=== PATIENT | female | born 1940 | race Caucasian/White ===

== ENCOUNTER 2016-12-02 00:42 | Inpatient (IN) ==
[2016-12-02 01:39] LABS: Bilirubin,Urine Negative (Negative); Blood,Urine Negative (Negative); Clarity,Urine Cloudy (Clear); Color,Urine Yellow (Yellow); Glucose,Urine (UA) Normal (Normal); Ketones,Urine Negative (Negative); Leukocyte Esterase,Urine Moderate (Negative); Nitrite,Urine Negative (Negative); PH,Urine 6.5 pH Units (5.0-8.0); Protein,Urine Negative (Neg-Trace); Urobilinogen,Urine Normal (Normal)
[2016-12-02 01:41] LABS: Bacteria,Urine None Seen per hpf (None-Few); Hyaline Casts,Urine None Seen per lpf (None-Few); RBC,Urine 0-3 per hpf (0-3); Squamous Epithelial Cell,Urine Many per lpf (None-Few)
[2016-12-02 02:09] LABS: Basophils % 0.3 %; Eosinophils % 0.1 %; Hematocrit 36.5 % (35.3-44.9); Hemoglobin 11.6 g/dL (11.5-15.4); Immature Granulocytes % 0.5 % (0-4); Lymphocytes # 0.8 K/mcL (0.6-4.6); Lymphocytes % 6.4 %; Mean Corpuscular HGB Conc 31.8 g/dL (31.6-35.5); Mean Corpuscular Hemoglobin 25.7 pg (28.0-33.3); Mean Corpuscular Volume 80.9 fL (83.0-100.0); Mean Platelet Volume 9.6 fL (9.4-12.4); Monocytes # 0.9 K/mcL (0.0-1.3); Monocytes % 7.2 %; Neutrophils # 10.4 K/mcL (1.6-8.9); Platelet Count 185 K/mcL (140-400); Red Blood Count 4.51 M/mcL (3.82-4.97); Red Cell Distribution Width 18.9 % (11.5-14.5); Segmented Neutrophils % 85.5 %
[2016-12-02 02:21] LABS: Alanine Aminotransferase 103 Units/L (0-55); Albumin 3.5 g/dL (3.5-5.0); Albumin/Globulin Ratio 1.1 (1.1-2.2); Alkaline Phosphatase 86 Units/L (38-126); Aspartate Amino Transferase 181 Units/L (5-34); BUN/Creatinine Ratio 23 (6-26); Bilirubin,Direct 0.7 mg/dL (0.0-0.5); Bilirubin,Indirect 0.5 mg/dL (0.0-1.2); Bilirubin,Total 1.2 mg/dL (0.2-1.2); Blood Urea Nitrogen 23 mg/dL (7-20); Calcium 9.9 mg/dL (8.6-10.8); Carbon Dioxide 21 mEq/L (19-29); Chloride 106 mEq/L (98-109); Globulin 3.1 g/dL (2.4-3.5); Glucose 164 mg/dL (70-99); Lipase 71 Units/L (8-78); Osmolality,Calculated 295 (280-300); Potassium 3.5 mEq/L (3.5-4.5); Sodium 139 mEq/L (136-145); Total Protein 6.6 g/dL (6.0-8.3); eGFR For African Americans > 60 (> 60); eGFR For Non-African Americans 53 (> 60)
[2016-12-02] MEDS ORDERED: 0.9 % Sodium Chloride 1,000 ML IVC ONE (02:33)
[2016-12-02] MEDS ORDERED: *HR* HYDROmorphone (PF) 1 MG/ML SYRINGE IV ONE (02:33)
[2016-12-02] MEDS ORDERED: Ondansetron 4 MG/2 ML VIAL IV ONE ×2 (02:33→05:34)
--- NOTE | 2016-12-02 02:33 | Emergency Department Note ---
Disposition Clinical Impression: S/P ERCP, Transaminitis Abdominal pain Qualifiers: Abdominal location: epigastric Qualified Code(s): R10.13 - Epigastric pain Leukocytosis Qualifiers: Leukocytosis type: unspecified Qualified Code(s): D72.829 - Elevated white blood cell count, unspecified Disposition: Admitted As Inpatient Condition: Fair Time of Disposition: 05:34 Abdominal Pain HPI - General Chief Complaint: ED Abdominal Pain Stated Complaint: epigastric pain Time Seen by Provider: 12/02/16 00:50 Source: patient, family Mode of arrival: ambulatory Limitations: no limitations Nursing Notes Reviewed: Yes Vital Signs Reviewed: Yes - History of Present Illness HPI Narrative: 76-year-old female history of recent ERCP 2 days ago, presents with 4 hours of epigastric pain, patient has had dry heaves but no vomiting. Afebrile, denies chest pain, denies lower abdominal pain, states pain is mostly in her epigastrium crampy radiating into her left upper abdomen. It is the pain is 10 out of 10, crampy achy. Denies weight loss chills dysuria hematuria hematochezia or melena Pt Subjective Complaint: abdominal pain Onset (ago): hour(s) Consistency: intermittent Location: LUQ, epigastric Pain Severity: severe Pain Scale: 10 Quality: cramping, stabbing, aching Radiation: LUQ Improves with: nothing Worsens with: eating, vomiting Associated symptoms: Reports: nausea. Denies: vomiting, diarrhea, fever, chills , constipation, dysuria, hematemesis Treatments prior to arrival: none - Related Data Home Medications Medication Instructions Recorded Confirmed Atorvastatin [Lipitor] 40 mg PO HS 11/30/16 12/02/16 Diltiazem CD (24hr) [Cardizem CD] 120 mg PO BID 11/30/16 12/02/16 Dronedarone [Multaq] 400 mg PO BIDWM 11/30/16 12/02/16 FLUoxetine HCl [PROzac] 20 mg PO DAILY 11/30/16 12/02/16 Ferrous Sulfate [Iron] 325 mg PO BID 11/30/16 12/02/16 Losartan Potassium [Cozaar] 50 mg PO HS 11/30/16 12/02/16 Melatonin/Pyridoxine HCl (B6) 1 tab PO HS PRN 11/30/16 12/02/16 [Melatonin 1 mg Tablet] Rivaroxaban [Xarelto] 20 mg PO DAILY 11/30/16 12/02/16 Cyanocobalamin (Vitamin B-12) 1,000 mcg PO DAILY 12/02/16 12/02/16 [Vitamin B12] Lipase/Protease/Amylase [Creon Dr 1 cap PO TID 12/02/16 12/02/16 36,000 Units Capsule] Metformin [Glucophage] 500 mg PO TID 12/02/16 12/02/16 Allergies Allergy/AdvReac Type Severity Reaction Status Date / Time lisinopril Allergy Cough Verified 11/30/16 12:06 acetaminophen [From Vicodin] AdvReac Nausea Verified 11/30/16 12:06 hydrocodone [From Vicodin] AdvReac Nausea Verified 11/30/16 12:06 All systems ED: reviewed and negative except as stated. Constitutional: Denies: fever, chills Eyes: Denies: eye pain, eye discharge Cardiovascular: Denies: chest pain, palpitations Respiratory: Denies: cough, dyspnea Gastrointestinal: Reports: as per HPI, abdominal pain, nausea. Denies: vomiting , diarrhea, hematemesis, melena Genitourinary: Denies: urgency, dysuria Musculoskeletal: Denies: back pain, neck pain Integumentary: Denies: rash, abrasion Neurological: Denies: headache, weakness Psychiatric: Denies: anxiety, depression Abdominal Pain PMH - Past Medical History Medical history: Reports: diabetes, hyperlipidemia, hypertension, osteoporosis, thyroid disease Female Surgical History: Reports: cholecystectomy, hysterectomy Psychiatric history: Reports: no psych history - Social History Smoking status: Never smoker Alcohol use: Reports: none Drug use: Reports: none Physical Exam Constitutional: Appears moderately uncomfortable. Vital signs sinus bradycardia HEENT: NCAT, sclera anicteric, PERRLA bilaterally, normal external ears bilaterally, nasal septum nondeviated, average dentition, MMM Neck: normal inspection, neck is supple, trachea midline Resp: normal chest inspection, CTA bilaterally, no resp distress CV: RRR, no m/g/r GI: Moderate to severe epigastric tenderness palpation left upper quadrant tenderness palpation, no hepatosplenomegaly, negative Quarles sign, no rebound or rigidity Back: normal inspection, no tenderness to palpation Neuro: A&O3, no gross motor or sensory deficits bilaterally Skin: No jaundice - General Limitations: no limitations General appearance: alert Course Course Narrative: 76-year-old female status post ERCP with epigastric pain, we will check a CT scan of her abdomen after basic lab work with lipase troponin EKG is unremarkable does not show any ST segment elevations or depressions. - Reevaluation(s) Reevaluation #1: Admitted to Dr Sen, ED HOld, patient stable. Time: 06:23 - Consultations Consultation #1: I spoke with he stated that the patient could be admitted for abdominal pain, was able to see patient out patient setting, her labs looked so severe that she needed an inpatient admission unless her abdominal pain was not able to be controlled. After discussing this with the patient, she states that she is unable to go home concerned that her abdominal pain will come back worsened, we will pursue inpatient admission Time: 05:34 Vital Signs Temperature 97.8 F 12/02/16 00:56 Pulse Rate 55 12/02/16 00:56 Respiratory Rate 16 12/02/16 00:56 Blood Pressure 132/61 12/02/16 00:56 O2 Sat by Pulse Oximetry 97 12/02/16 00:56 Temperature 98.8 F 12/02/16 19:02 Pulse Rate 64 12/02/16 19:02 Respiratory Rate 16 12/02/16 19:02 Blood Pressure 134/68 12/02/16 19:02 O2 Sat by Pulse Oximetry 94 12/02/16 19:02 Oxygen Delivery Oxygen Delivery Room Air Abdominal Pain - MDM Narrative Medical decision making narrative: 36-year-old female with transaminitis, leukocytosis, status post ERCP procedure , admitted for intractable pain nausea vomiting, and further evaluation, consultation Dr. Schroeder placed Dr. Sen accepted patient for admission - Differential Diagnosis Differential Diagnosis: Likely: abdominal pain non-specific, constipation, colonic obstruction, pancreatitis, small bowel obstruction - Medical Records Medical records reviewed: Yes I reviewed the patient's medical records. - Lab Data Lab results reviewed: Yes I reviewed the patient's lab results. Result diagrams: 12/02/16 02:00 12/02/16 02:00 Lab Results 12/02/16 12/02/16 12/02/16 Range/Units 01:27 02:00 02:00 WBC 12.2 H (4.3-11.1) K/mcL RBC 4.51 (3.82-4.97) M/mcL Hgb 11.6 (11.5-15.4) g/dL Hct 36.5 (35.3-44.9) % MCV 80.9 L (83.0-100.0) fL MCH 25.7 L (28.0-33.3) pg MCHC 31.8 (31.6-35.5) g/dL RDW 18.9 H (11.5-14.5) % Plt Count 185 (140-400) K/mcL MPV 9.6 (9.4-12.4) fL Immature Gran % 0.5 (0-4) % Seg Neutrophils % 85.5 % Lymphocytes % 6.4 % Monocytes % 7.2 % Eosinophils % 0.1 % Basophils % 0.3 % Neutrophils # 10.4 H (1.6-8.9) K/mcL Lymphocytes # 0.8 (0.6-4.6) K/mcL Monocytes # 0.9 (0.0-1.3) K/mcL Eosinophils # 0.0 (0.0-0.6) K/mcL Basophils # 0.0 (0.0-0.2) K/mcL Sodium 139 (136-145) mEq/L Potassium 3.5 (3.5-4.5) mEq/L Chloride 106 (98-109) mEq/L Carbon Dioxide 21 (19-29) mEq/L BUN 23 H (7-20) mg/dL Creatinine 1.01 (0.57-1.11) mg/dL Est GFR ( Amer) > 60 (> 60) Est GFR (Non-Af Amer) 53 L (> 60) BUN/Creatinine Ratio 23 (6-26) Glucose 164 H (70-99) mg/dL Est Mean Plasma Glucose mg/dl Hemoglobin A1c ( - 5.6) % Calculated Osmolality 295 (280-300) Calcium 9.9 (8.6-10.8) mg/dL Total Bilirubin 1.2 (0.2-1.2) mg/dL Direct Bilirubin 0.7 H (0.0-0.5) mg/dL Indirect Bilirubin 0.5 (0.0-1.2) mg/dL AST 181 H (5-34) Units/L ALT 103 H (0-55) Units/L Alkaline Phosphatase 86 (38-126) Units/L Troponin I (0-0.03) ng/mL Serum Total Protein 6.6 (6.0-8.3) g/dL Albumin 3.5 (3.5-5.0) g/dL Globulin 3.1 (2.4-3.5) g/dL Albumin/Globulin Ratio 1.1 (1.1-2.2) Lipase 71 (8-78) Units/L Urine Color Yellow (Yellow) Urine Clarity Cloudy A (Clear) Urine pH 6.5 (5.0-8.0) pH Units Ur Specific [place] 1.020 (1.010-1.025) Urine Protein Negative (Neg-Trace) mg/dL Urine Glucose (UA) Normal (Normal) mg/dL Urine Ketones Negative (Negative) mg/dL Urine Blood Negative (Negative) Urine Nitrite Negative (Negative) Urine Bilirubin Negative (Negative) Urine Urobilinogen Normal (Normal) mg/dL Ur Leukocyte Esterase Moderate H (Negative) Urine Microscopic RBC 0-3 (0-3) per hpf Urine Microscopic WBC 5-15 H (0-3) per hpf Ur Squamous Epith Cells Many H (None-Few) per lpf Urine Bacteria None Seen (None-Few) per hpf Hyaline Casts None Seen (None-Few) per lpf Ur Culture Indicated? YES A (NO) 12/02/16 12/02/16 Range/Units 02:00 02:00 WBC (4.3-11.1) K/mcL RBC (3.82-4.97) M/mcL Hgb (11.5-15.4) g/dL Hct (35.3-44.9) % MCV (83.0-100.0) fL MCH (28.0-33.3) pg MCHC (31.6-35.5) g/dL RDW (11.5-14.5) % Plt Count (140-400) K/mcL MPV (9.4-12.4) fL Immature Gran % (0-4) % Seg Neutrophils % % Lymphocytes % % Monocytes % % Eosinophils % % Basophils % % Neutrophils # (1.6-8.9) K/mcL Lymphocytes # (0.6-4.6) K/mcL Monocytes # (0.0-1.3) K/mcL Eosinophils # (0.0-0.6) K/mcL Basophils # (0.0-0.2) K/mcL Sodium (136-145) mEq/L Potassium (3.5-4.5) mEq/L Chloride (98-109) mEq/L Carbon Dioxide (19-29) mEq/L BUN (7-20) mg/dL Creatinine (0.57-1.11) mg/dL Est GFR ( Amer) (> 60) Est GFR (Non-Af Amer) (> 60) BUN/Creatinine Ratio (6-26) Glucose (70-99) mg/dL Est Mean Plasma Glucose 114 mg/dl Hemoglobin A1c 5.6 ( - 5.6) % Calculated Osmolality (280-300) Calcium (8.6-10.8) mg/dL Total Bilirubin (0.2-1.2) mg/dL Direct Bilirubin (0.0-0.5) mg/dL Indirect Bilirubin (0.0-1.2) mg/dL AST (5-34) Units/L ALT (0-55) Units/L Alkaline Phosphatase (38-126) Units/L Troponin I 0.03 (0-0.03) ng/mL Serum Total Protein (6.0-8.3) g/dL Albumin (3.5-5.0) g/dL Globulin (2.4-3.5) g/dL Albumin/Globulin Ratio (1.1-2.2) Lipase (8-78) Units/L Urine Color (Yellow) Urine Clarity (Clear) Urine pH (5.0-8.0) pH Units Ur Specific [place] (1.010-1.025) Urine Protein (Neg-Trace) mg/dL Urine Glucose (UA) (Normal) mg/dL Urine Ketones (Negative) mg/dL Urine Blood (Negative) Urine Nitrite (Negative) Urine Bilirubin (Negative) Urine Urobilinogen (Normal) mg/dL Ur Leukocyte Esterase (Negative) Urine Microscopic RBC (0-3) per hpf Urine Microscopic WBC (0-3) per hpf Ur Squamous Epith Cells (None-Few) per lpf Urine Bacteria (None-Few) per hpf Hyaline Casts (None-Few) per lpf Ur Culture Indicated? (NO) - Radiology Data Radiology results reviewed: Yes I reviewed the patient's radiology results. Chest X-Ray 12/02/16 00:59 IMPRESSION: No acute cardiopulmonary abnormality. D/ / Kevon Fulton MD / Kevon Fulton MD Interpreting Provider: Kevon Fulton MD Abdomen/Pelvis CT 12/02/16 02:34 IMPRESSION: Pancreatic duct stent in place, with decompression of the pancreatic duct near the ampulla. Chronic intrahepatic and extrahepatic biliary dilation is decreased from prior CT exam. Scattered pneumobilia is likely related to recent instrumentation. There may be superimposed mild nonspecific periportal edema. Mild diverticulosis. D/ / Solomon Lanier MD / Solomon Lanier MD Interpreting Provider: Solomon Lanier MD - EKG Data EKG attestation: Yes I reviewed and interpreted this EKG. EKG shows normal: sinus rhythm Rate: bradycardia (55 bpm SC 185 [place] [address] segment elevations or depressions, nonspecific T-wave flattening in V5 and V6) T wave inversions noted in: v5, v6 Interpretation: nonspecific ST-T wave changes - Core Measures AMI Core Measures Followed: No Measure Exclusions: not indicated Attestation Statement - Attestation Attestation: I personally interviewed and examined this patient and my medical decision- making was reviewed with the ED Resident Physician, Dr. Vasques. I agree with the documented findings, disposition and treatment plan as described except to the extent set forth below. Pt with recent ERCP 2 d ago here with 4 hr hx of epigastric pain. VSS. Pt had CT scan and labs for further eval. CT shows patent duct and no abnormalities, labs with mild lekocytosis and transaminitis. D/W Dr. Andrade who agreed to consult on pt, and pt admitted to medicine.
[2016-12-02] MEDS ORDERED: *HR* HYDROmorphone (PF) 1 MG/ML SYRINGE IV STA (05:34)
[2016-12-02] MEDS: 0.9 % Sodium Chloride 1,000 ML IVC SCH ×2 (05:51→16:25)
[2016-12-02] MEDS ORDERED: Naloxone 0.4 MG/ML INJ IVP PRN (11:56)
[2016-12-02] MEDS ORDERED: *HR* HYDROmorphone (PF) 1 MG/ML SYRINGE IVP PRN (11:56)
[2016-12-02] MEDS ORDERED: Ondansetron 4 MG/2 ML VIAL IVP PRN (11:56)
[2016-12-02] MEDS ORDERED: *HR* Dextrose 50 % in Water (Syg) 50 ML SYRINGE IVP PRN (12:05)
[2016-12-02] MEDS ORDERED: Dextrose Gel 15 GM PO PRN ×2 (12:05)
[2016-12-02] MEDS ORDERED: D5% in Water 1,000 ML IVC PRN (12:05)
--- NOTE | 2016-12-02 12:05 | Electrocardiograph Report ---
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
--- NOTE | 2016-12-02 12:11 | Internal Med History&Physical ---
<Stephanie Felix M - Last Filed: 12/02/16 12:48> Date of Encounter: 12/02/16 Time of Encounter: 12:05 Assessment and Plan (1) Abdominal pain Current visit: Yes Status: Acute Patient with severe epigastric pain starting last evening and worsening, accompanied by nausea and vomiting. Patient with recent ERCP on Wednesday. Labs reveal mildly elevated WBC 12.2, elevated LFTs with AST 181, ALT 103, and alk phos normal at 86. Abd/pelvis CT shows pancreatic duct stent in place with decompression of pancreatic duct near ampulla, chronic intrahepaic and extrahepatic biliary dilation is decreased from prior CT exam. Scattered pneumobilia is likely related to recent instrumentation. Dilaudid IVP PRN for pain Zofran IVP PRN for nausea Narcan PRN for respiratory depression Dr. Schroeder consulted NPO except for meds, ice chips and sips of water IV fluids 0.9NS at 125mL/hr repeat LFTs tomorrow morning Qualifiers: Abdominal location: epigastric Qualified Code(s): R10.13 - Epigastric pain (2) S/P ERCP Current visit: Yes Status: Acute Patient had ERCP on 12/[address] Schroeder for dilated pancreatic duct. CT abdomen and pelvis today show pancreatic duct stent in place with decompression of pancreatic duct near ampulla. GI/Dr. Schroeder consulted. (3) Type 2 diabetes mellitus Current visit: Yes Status: Acute Patient was previously on Metformin, but it was stopped a few weeks ago due to concerns it was causing her diarrhea. Check Hgb A1c. Check blood sugars Q6Hr while NPO Sliding scale correction dose Q6 hours hypoglycemic protocol. Qualifiers: Diabetes mellitus complication status: without complication Diabetes mellitus care home insulin use: without care home use Qualified Code(s): E11.9 - Type 2 diabetes mellitus without complications (4) Atrial fibrillation Current visit: No Status: Chronic Patient is status post ablation and takes Cardizem and dronedarone for rhythm control and Xarelto for anti-coagulation. Patient has regular rate and rhythm on exam. Continue home doses of cardizem, dronedarone and xarelto. Qualifiers: Atrial fibrillation type: chronic Qualified Code(s): I48.2 - Chronic atrial fibrillation (5) DVT prophylaxis Current visit: Yes Status: Acute Encourage ambulation anti-embolic stockings Patient on Xarelto, additional pharmacologic prophylaxis is not indicated. Internal Medicine - H&P: HPI Chief complaint: abdominal pain Admitted From: Emergency Dept Plans for Post Hospital Care: Home History of present illness: Ms. Knight is a 76 year old female with hypertension, hyperlipidemia, diet- controlled type 2 diabetes, atrial fibrillation status post ablation, and dilation of pancreatic ducts recently had an ERCP presented to the emergency department early this morning with complaints of severe abdominal pain. Patient reports the pain is located in the epigastric area and radiates to the right and left upper quadrant in her back. She describes it as cramping, tight , severe, and worsening since its onset at about 8:00 last evening. She reports she tried Tylenol but that did not relieve her pain. She also had nausea and vomiting. Pain was somewhat relieved by pain medication given in the emergency department. Patient denies headache, lightheadedness, chest pain , palpitations, shortness of breath, diarrhea, fever, chills, night sweats. Patient reports she has been having a poor appetite and diarrhea as well as intermittent abdominal pain since early September, which is why she has been seen by Dr. Hathaway and been evaluated with an EUS, and CT. It was found that she had dilated pancreatic duct for which she underwent an ERCP with stent placement 2 days ago on the fourth. She continues to have a poor appetite. She reports she has not had a bowel movement since her ERCP on the fourth. She is passing flatus, however. Evaluation in the emergency department included a CT of the abdomen and pelvis which showed pancreatic duct stent in place with decompression of the pancreatic duct near the ampulla. Labs revealed mildly elevated white blood cell count of 12.2. Mildly elevated BUN of 23. Elevated LFTs with AST of 181, ALT of 103. Dr. Schroeder was consulted and recommended admission. On exam, patient is alert and oriented, in no acute distress. Lungs are clear to auscultation bilaterally and heart has regular rate and rhythm. Abdomen is mildly tender in the epigastric area in the right upper quadrant. Past Med Surg Social Fam HX - Past Medical History Medical history: atrial fibrillation, cancer (SCC), diabetes, hyperlipidemia, hypertension, osteoporosis Psychiatric history: no psych history - Past Surgical History Surgical History: cancer surgery (removal of SCC from ankle), cholecystectomy, hysterectomy, other (cardiac ablation) - Social History Smoking Status: Never smoker Smokeless Tobacco Status: No Alcohol use: occasionally Drug use: none - Family History Mother Living Status: Cause of : leukemia Father Living Status: Cause of : [facility] Internal Medicine - H&P: Meds Atorvastatin [Lipitor] 40 mg PO HS 11/30/16 [History] Diltiazem CD (24hr) [Cardizem CD] 120 mg PO BID 11/30/16 [History] Dronedarone [Multaq] 400 mg PO BIDWM 11/30/16 [History] FLUoxetine HCl [PROzac] 20 mg PO DAILY 11/30/16 [History] Ferrous Sulfate [Iron] 325 mg PO BID 11/30/16 [History] Losartan Potassium [Cozaar] 50 mg PO HS 11/30/16 [History] Melatonin/Pyridoxine HCl (B6) [Melatonin 1 mg Tablet] 1 tab PO HS PRN 11/30/16 [ History] Rivaroxaban [Xarelto] 20 mg PO DAILY 11/30/16 [History] Cyanocobalamin (Vitamin B-12) [Vitamin B12] 1,000 mcg PO DAILY 12/02/16 [History ] Lipase/Protease/Amylase [Creon Dr 36,000 Units Capsule] 1 cap PO TID 12/02/16 [ History] Metformin [Glucophage] 500 mg PO TID 12/02/16 [History] Allergies lisinopril Allergy (Verified 11/30/16 12:06) Cough acetaminophen [From Vicodin] Adverse Reaction (Verified 11/30/16 12:06) Nausea hydrocodone [From Vicodin] Adverse Reaction (Verified 11/30/16 12:06) Nausea All Systems PM: A 10-system review of systems was performed and is negative for pertinent findings except as documented above in the HPI. - Constitutional Constitutional: no chills, no fever(s), no night sweats - EENT Eyes: no change in vision, no discharge, no pain, no photophobia Ears: no ear discharge, no ear pain, no tinnitus Nose, mouth and throat: no dysphagia, no nasal discharge, no neck pain, no sore throat - Cardiovascular Cardiovascular ROS IM: no chest pain, no diaphoresis, no dyspnea, no lightheadedness, no palpitations, no syncope - Respiratory Respiratory: no cough, no dyspnea, no wheezing, no excessive phlegm production - Gastrointestinal Gastrointestinal: abdominal pain, nausea, vomiting, no diarrhea, no hematemesis , no hematochezia, no melena - Genitourinary Genitourinary: no change in urinary stream, no dysuria, no flank pain, no hematuria - Musculoskeletal Musculoskeletal ROS IM: no numbness, no tingling - Integumentary Integumentary IM: no rash, no unusual bruising - Neurological Neurological ROS: no confusion, no convulsions, no focal weakness, no numbness, no tingling, no tremor(s) - Hematologic/Lymphatic Hematologic/Lymphatic: no easy bruising - Constitutional Vitals: Temp Pulse Resp BP Pulse Ox 97.8 F 62 18 135/70 91 12/02/16 07:48 12/02/16 07:48 12/02/16 07:48 12/02/16 07:48 12/02/16 07:48 General appearance: Present: A&O X 3, pleasant, no acute distress - Head Head exam: Present: atraumatic, normocephalic - Eye Eye exam: Present: PERRL, conjuntiva pink, sclera anicteric Pupils: Present: PERRL - Neck Neck exam general surgery: Present: supple, trachea midline. Absent: lymphadenopathy - Respiratory Respiratory exam: Present: CTAB. Absent: accessory muscle use, rales, rhonchi, wheezes - Cardiovascular Cardiovascular exam: Present: RRR, +S1, +S2. Absent: diastolic murmur, gallop, rubs, systolic murmur - GI/Abdominal GI/Abdominal exam: Present: normal bowel sounds, soft, tenderness (mild tenderness to epigastric area and RUQ), no peritoneal signs. Absent: distended - Extremities Exam Extremities exam: Present: warm, radial pulses palpable and symetrical. Absent : calf tenderness, cyanotic, pedal edema - Neurological Exam Neurological exam: Present: CN II-XII intact, oriented X3, no focal deficits. Absent: facial droop, speech deficit - Skin Skin exam: Present: dry, intact Internal Med - H&P Results - Labs CBC & Chem 7: 12/02/16 02:00 12/02/16 02:00 Labs: All Lab Results (24 Hours) 12/02/16 12/02/16 12/02/16 Range/Units 01:27 02:00 02:00 WBC 12.2 H (4.3-11.1) K/mcL RBC 4.51 (3.82-4.97) M/mcL Hgb 11.6 (11.5-15.4) g/dL Hct 36.5 (35.3-44.9) % MCV 80.9 L (83.0-100.0) fL MCH 25.7 L (28.0-33.3) pg MCHC 31.8 (31.6-35.5) g/dL RDW 18.9 H (11.5-14.5) % Plt Count 185 (140-400) K/mcL MPV 9.6 (9.4-12.4) fL Immature Gran % 0.5 (0-4) % Seg Neutrophils % 85.5 % Lymphocytes % 6.4 % Monocytes % 7.2 % Eosinophils % 0.1 % Basophils % 0.3 % Neutrophils # 10.4 H (1.6-8.9) K/mcL Lymphocytes # 0.8 (0.6-4.6) K/mcL Monocytes # 0.9 (0.0-1.3) K/mcL Eosinophils # 0.0 (0.0-0.6) K/mcL Basophils # 0.0 (0.0-0.2) K/mcL Sodium 139 (136-145) mEq/L Potassium 3.5 (3.5-4.5) mEq/L Chloride 106 (98-109) mEq/L Carbon Dioxide 21 (19-29) mEq/L BUN 23 H (7-20) mg/dL Creatinine 1.01 (0.57-1.11) mg/dL Est GFR ( Amer) > 60 (> 60) Est GFR (Non-Af Amer) 53 L (> 60) BUN/Creatinine Ratio 23 (6-26) Glucose 164 H (70-99) mg/dL Calculated Osmolality 295 (280-300) Calcium 9.9 (8.6-10.8) mg/dL Total Bilirubin 1.2 (0.2-1.2) mg/dL Direct Bilirubin 0.7 H (0.0-0.5) mg/dL Indirect Bilirubin 0.5 (0.0-1.2) mg/dL AST 181 H (5-34) Units/L ALT 103 H (0-55) Units/L Alkaline Phosphatase 86 (38-126) Units/L Troponin I (0-0.03) ng/mL Serum Total Protein 6.6 (6.0-8.3) g/dL Albumin 3.5 (3.5-5.0) g/dL Globulin 3.1 (2.4-3.5) g/dL Albumin/Globulin Ratio 1.1 (1.1-2.2) Lipase 71 (8-78) Units/L Urine Color Yellow (Yellow) Urine Clarity Cloudy A (Clear) Urine pH 6.5 (5.0-8.0) pH Units Ur Specific [place] 1.020 (1.010-1.025) Urine Protein Negative (Neg-Trace) mg/dL Urine Glucose (UA) Normal (Normal) mg/dL Urine Ketones Negative (Negative) mg/dL Urine Blood Negative (Negative) Urine Nitrite Negative (Negative) Urine Bilirubin Negative (Negative) Urine Urobilinogen Normal (Normal) mg/dL Ur Leukocyte Esterase Moderate H (Negative) Urine Microscopic RBC 0-3 (0-3) per hpf Urine Microscopic WBC 5-15 H (0-3) per hpf Ur Squamous Epith Cells Many H (None-Few) per lpf Urine Bacteria None Seen (None-Few) per hpf Hyaline Casts None Seen (None-Few) per lpf Ur Culture Indicated? YES A (NO) 12/02/16 Range/Units 02:00 WBC (4.3-11.1) K/mcL RBC (3.82-4.97) M/mcL Hgb (11.5-15.4) g/dL Hct (35.3-44.9) % MCV (83.0-100.0) fL MCH (28.0-33.3) pg MCHC (31.6-35.5) g/dL RDW (11.5-14.5) % Plt Count (140-400) K/mcL MPV (9.4-12.4) fL Immature Gran % (0-4) % Seg Neutrophils % % Lymphocytes % % Monocytes % % Eosinophils % % Basophils % % Neutrophils # (1.6-8.9) K/mcL Lymphocytes # (0.6-4.6) K/mcL Monocytes # (0.0-1.3) K/mcL Eosinophils # (0.0-0.6) K/mcL Basophils # (0.0-0.2) K/mcL Sodium (136-145) mEq/L Potassium (3.5-4.5) mEq/L Chloride (98-109) mEq/L Carbon Dioxide (19-29) mEq/L BUN (7-20) mg/dL Creatinine (0.57-1.11) mg/dL Est GFR ( Amer) (> 60) Est GFR (Non-Af Amer) (> 60) BUN/Creatinine Ratio (6-26) Glucose (70-99) mg/dL Calculated Osmolality (280-300) Calcium (8.6-10.8) mg/dL Total Bilirubin (0.2-1.2) mg/dL Direct Bilirubin (0.0-0.5) mg/dL Indirect Bilirubin (0.0-1.2) mg/dL AST (5-34) Units/L ALT (0-55) Units/L Alkaline Phosphatase (38-126) Units/L Troponin I 0.03 (0-0.03) ng/mL Serum Total Protein (6.0-8.3) g/dL Albumin (3.5-5.0) g/dL Globulin (2.4-3.5) g/dL Albumin/Globulin Ratio (1.1-2.2) Lipase (8-78) Units/L Urine Color (Yellow) Urine Clarity (Clear) Urine pH (5.0-8.0) pH Units Ur Specific [place] (1.010-1.025) Urine Protein (Neg-Trace) mg/dL Urine Glucose (UA) (Normal) mg/dL Urine Ketones (Negative) mg/dL Urine Blood (Negative) Urine Nitrite (Negative) Urine Bilirubin (Negative) Urine Urobilinogen (Normal) mg/dL Ur Leukocyte Esterase (Negative) Urine Microscopic RBC (0-3) per hpf Urine Microscopic WBC (0-3) per hpf Ur Squamous Epith Cells (None-Few) per lpf Urine Bacteria (None-Few) per hpf Hyaline Casts (None-Few) per lpf Ur Culture Indicated? (NO) - Diagnostic Studies CT scan - abdomen Additional comments: Abdomen/Pelvis CT 12/02/16 02:34 IMPRESSION: Pancreatic duct stent in place, with decompression of the pancreatic duct near the ampulla. Chronic intrahepatic and extrahepatic biliary dilation is decreased from prior CT exam. Scattered pneumobilia is likely related to recent instrumentation. There may be superimposed mild nonspecific periportal edema. Mild diverticulosis. D/ / 12/02/2016 07:32:41 Solomon Lanier MD / mai Interpreting Provider: Solomon Lanier MD Chest x-ray Additional comments: Chest X-Ray 12/02/16 00:59 IMPRESSION: No acute cardiopulmonary abnormality. D/ / Kevon Fulton MD / Kevon Fulton MD Interpreting Provider: Kevon Fulton MD <RegRonald T - Last Filed: 12/02/16 13:41> Date of Encounter: 12/02/16 Internal Medicine - H&P: HPI History of present illness: Ms. Knight is a 76 year old female All Systems PM: A 10-system review of systems was performed and is negative for pertinent findings except as documented above in the HPI. - Constitutional Vitals: Temp Pulse Resp BP Pulse Ox 97.3 F L 60 17 138/65 92 12/02/16 12:05 12/02/16 12:05 12/02/16 12:05 12/02/16 12:05 12/02/16 12:05 Internal Med - H&P Results - Labs CBC & Chem 7: 12/02/16 02:00 12/02/16 02:00 - Attending Attestation I have independently interviewed and examined this patient. I have discussed this patient with EFREN Dykes, and her documentation reflects the plan of care with the following addendum 76 Y/O F with epigastric pain s/p pancreatic duct stent, transaminitis, possibly side effect of procedure. Physical exam VSS, abdomen is soft, not tender, chest is clear. Labs and Imaging reviewed: Mild transaminitis, otherwise unremarkable. Abd CT showed stent in place and resolution of prior dilatation Plan is to continue supportive care, GI has been consulted, follow recs, clear liquid diet as tolerated, resume home meds, other chronic conditions including Afib is stable, rest of details as in EFREN Andino documentation
[2016-12-02] MEDS ORDERED: *HR* Rivaroxaban 10 MG TABLET PO SCH (12:15)
--- NOTE | 2016-12-02 12:22 | Gastroenterology Consult Note ---
<Nolberto Herman - Last Filed: 12/02/16 12:18> Date of Encounter: 12/02/16 Time of Encounter: 10:30 - Time Spent With Patient Total time spent is greater than 50% in coordination of care (as documented) at patient's floor/unit and/or counseling patient: GI History of Present Illness - Data of Consult Patient: known to practice within the last 3 years Consult date: 12/02/16 Requesting Physician: Marcelo Ling MD - Consult Narrative Reason for consult: epigastric pain History of present illness: Ms. Knight is a 76 year old female with PMHx of HLD, HTN, DM, diverticulosis, Afib who was seen in office for epigastric pain, nausea, vomiting, and elevated LFTs. CT A/P 11/13/2016 with dilated CBD and PD. CA 19-9 elevated to 45. AST 176 and ALT 149 on 10/12, AT 55 and ALT 70 on 11/11, and today AST 181 and ALT 103. Pt had EUS and ERCP completed on 11/30, no lesions seen, nothing found in biliary tree, and temproary stent placed in PD. Pt presented to ED with recurrent epigastric pain Procedures: EUS 11/30/2016 severe dilation of the CBD and PD but no periampullary lesion seen or any lesion in the head of the pancreas. ERCP 11/30/2016 at 1:29 PM biliary sphincterotomy performed, biliary tree swept nothing found. One temporary stent placed into the ventral pancreatic duct. Plan for removal of PD stent in 3 weeks. NSAIDs: None Anticoagulation: Xarelto A/P Dilation of the pancreatic duct EUS and ERCP completed 11/30. Biliary Sphincterotomy was performed and nothing found in the biliary tree. Temporary stent was placed in the pancreatic duct. Plan to refer to [facility] for repeat EUS with spyglass and removal of PD stent in 3- 5 weeks. Concern for small stone. Start clear liquid diet. Epigastric pain As above. Continue pain control and antiemetics. Elevated LFTs Continue to monitor LFTs daily. Past Med Surg Social Fam HX - Past Medical History Medical history: atrial fibrillation, cancer (SCC), diabetes, hyperlipidemia, hypertension, osteoporosis Psychiatric history: no psych history - Past Surgical History Surgical History: cancer surgery (removal of SCC from ankle), cholecystectomy, hysterectomy, other (cardiac ablation) - Social History Smoking Status: Never smoker Smokeless Tobacco Status: No Alcohol use: occasionally Drug use: none - Family History Mother Living Status: Cause of : leukemia Father Living Status: Cause of : [facility] - Gastrointestinal Gastrointestinal: Present: as per HPI - Constitutional Constitutional: as per HPI - EENT Eyes: as per HPI Ears: Present: as per HPI Nose, mouth and throat: Present: as per HPI - Cardiovascular Cardiovascular ROS: Present: as per HPI - Respiratory Respiratory IM: Present: as per HPI - Genitourinary Genitourinary: Absent: change in color, Urinary frequency - Neurological ROS Neurological GI: Present: as per HPI - Hematologic/Lymphatic Hematologic/Lymphatic pediatric: Present: as per HPI - Musculoskeletal Musculoskeletal ROS GI: Present: as per HPI - Integumentary Integumentary GI: Present: as per HPI - Psychiatric ROS Psychiatric GI: Present: as per HPI - Endocrine Endocrine IM: Present: as per HPI - Constitutional Vitals: Temp Pulse Resp BP Pulse Ox 97.8 F 62 18 135/70 91 12/02/16 07:48 12/02/16 07:48 12/02/16 07:48 12/02/16 07:48 12/02/16 07:48 General appearance: Present: cooperative, A&O X 3, no acute distress, answers questions appropriately - Head Head exam: Present: atraumatic, normocephalic - Eye Eye exam: Present: normal appearance, sclera anicteric - ENT ENT exam: Present: mucous membranes dry - Neck Neck exam general surgery: Present: normal inspection, trachea midline - Respiratory Respiratory exam: Present: CTAB - Cardiovascular Cardiovascular exam: Present: RRR, +S1, +S2 - GI/Abdominal GI/Abdominal exam: Present: soft, tenderness (epigastric), no peritoneal signs. Absent: distended, firm, guarding - Rectal Rectal exam: Present: deferred - Extremities Exam Extremities exam: Present: warm - Neurological Exam Neurological exam: Present: no focal deficits - Psychiatric Psychiatric exam: Present: normal affect, normal mood - Skin Skin exam: Present: dry, intact, normal color, warm Results - Labs CBC & Chem 7: 12/02/16 02:00 12/02/16 02:00 Labs: Last Result Calcium 9.9 mg/dL (8.6-10.8) 12/02/16 02:00 Troponin I 0.03 ng/mL (0-0.03) 12/02/16 02:00 Entire Visit Hgb 11.6 g/dL (11.5-15.4) 12/02/16 02:00 Hct 36.5 % (35.3-44.9) 12/02/16 02:00 Total Bilirubin 1.2 mg/dL (0.2-1.2) 12/02/16 02:00 AST 181 Units/L (5-34) H 12/02/16 02:00 ALT 103 Units/L (0-55) H 12/02/16 02:00 Lipase 71 Units/L (8-78) 12/02/16 02:00 Consult Discharge Plan - Plan Referrals: Marco Puga MD [Primary Care Provider] - <LuisneginWalterPatricia - Last Filed: 12/02/16 14:50> Date of Encounter: 12/02/16 Time of Encounter: 13:00 - Time Spent With Patient Total time spent is greater than 50% in coordination of care (as documented) at patient's floor/unit and/or counseling patient: GI History of Present Illness - Data of Consult Requesting Physician: Marcelo Ling MD - Consult Narrative History of present illness: Ms. Knight is a 76 year old female - Constitutional Vitals: Temp Pulse Resp BP Pulse Ox 97.3 F L 60 17 138/65 92 12/02/16 12:05 12/02/16 12:05 12/02/16 12:05 12/02/16 12:05 12/02/16 12:05 Results - Labs CBC & Chem 7: 12/02/16 02:00 12/02/16 02:00 Labs: Last Result Calcium 9.9 mg/dL (8.6-10.8) 12/02/16 02:00 Troponin I 0.03 ng/mL (0-0.03) 12/02/16 02:00 Entire Visit Hgb 11.6 g/dL (11.5-15.4) 12/02/16 02:00 Hct 36.5 % (35.3-44.9) 12/02/16 02:00 Total Bilirubin 1.2 mg/dL (0.2-1.2) 12/02/16 02:00 AST 181 Units/L (5-34) H 12/02/16 02:00 ALT 103 Units/L (0-55) H 12/02/16 02:00 Lipase 71 Units/L (8-78) 12/02/16 02:00 - Attending Attestation I examined this patient and my medical decision-making was reviewed with the ROLL TABLE OPERATOR/PA/Advanced Practice Nurse/Resident Physician. I agree with the documented findings, disposition and treatment plan as described except to the extent set forth below. Patient with very dilated CBD and PD. ERCP with sphincterotomy done on Wednesday. Did well after the procedure for 2 days but then she had yesterday epigastric abdominal pain,came to the ER and was found to have mildly elevated LFTs. Per patient she had similar episodes of pain total of 4 now in past few months. In September she also had a pain attack and at that time LFTs were similarly elevated. No obvious source seen on the cholangiogram or the MRCP. EUS negative for any ampullary lesion. Patient will need repeat ERCP with spyglass to make sure there is no retained stone in the bile duct and that will be scheduled as an outpatient
[2016-12-02] MEDS: Pantoprazole 40 MG VIAL IVP SCH (12:56)
[2016-12-02] MEDS: FLUoxetine 20 MG CAPSULE PO SCH (12:57)
[2016-12-02] MEDS: Diltiazem CD (24hr) 120 MG CAPSULE PO SCH ×2 (13:13→21:09)
[2016-12-02 13:35] LABS: Hemoglobin A1C 5.6 %
[2016-12-02] MEDS: *HR* Rivaroxaban 15 MG TABLET PO SCH ×2 (16:25→16:38)
[2016-12-02] MEDS: Insulin LISPRO 300 UNITS/3 ML VIAL SQ SCH (16:31)
[2016-12-03] MEDS: 0.9 % Sodium Chloride 1,000 ML IVC SCH ×4 (00:46→21:24)
[2016-12-03] MEDS: Insulin LISPRO 300 UNITS/3 ML VIAL SQ SCH ×4 (00:46→21:27)
[2016-12-03 05:52] LABS: Basophils # 0.1 K/mcL (0.0-0.2); Eosinophils # 0.2 K/mcL (0.0-0.6); Eosinophils % 3.1 %; Hematocrit 30.3 % (35.3-44.9); Immature Granulocytes % 0.5 % (0-4); Lymphocytes # 1.6 K/mcL (0.6-4.6); Lymphocytes % 27.8 %; Mean Corpuscular HGB Conc 31.7 g/dL (31.6-35.5); Mean Corpuscular Hemoglobin 26.4 pg (28.0-33.3); Mean Corpuscular Volume 83.2 fL (83.0-100.0); Mean Platelet Volume 10.5 fL (9.4-12.4); Monocytes # 0.5 K/mcL (0.0-1.3); Monocytes % 7.8 %; Neutrophils # 3.5 K/mcL (1.6-8.9); Platelet Count 154 K/mcL (140-400); Red Blood Count 3.64 M/mcL (3.82-4.97); Red Cell Distribution Width 19.8 % (11.5-14.5); Segmented Neutrophils % 59.8 %
[2016-12-03 05:55] LABS: Hemoglobin 9.6 g/dL (11.5-15.4)
[2016-12-03 06:12] LABS: Alanine Aminotransferase 415 Units/L (0-55); Albumin 3.1 g/dL (3.5-5.0); Albumin/Globulin Ratio 1.1 (1.1-2.2); Alkaline Phosphatase 107 Units/L (38-126); Aspartate Amino Transferase 416 Units/L (5-34); BUN/Creatinine Ratio 25 (6-26); Bilirubin,Direct 0.6 mg/dL (0.0-0.5); Bilirubin,Indirect 0.6 mg/dL (0.0-1.2); Bilirubin,Total 1.2 mg/dL (0.2-1.2); Blood Urea Nitrogen 20 mg/dL (7-20); Carbon Dioxide 22 mEq/L (19-29); Chloride 113 mEq/L (98-109); Globulin 2.8 g/dL (2.4-3.5); Glucose 89 mg/dL (70-99); Osmolality,Calculated 300 (280-300); Potassium 3.9 mEq/L (3.5-4.5); Sodium 144 mEq/L (136-145); Total Protein 5.9 g/dL (6.0-8.3); eGFR For African Americans > 60 (> 60); eGFR For Non-African Americans > 60 (> 60)
[2016-12-03] MEDS: FLUoxetine 20 MG CAPSULE PO SCH (08:38)
[2016-12-03] MEDS: Diltiazem CD (24hr) 120 MG CAPSULE PO SCH ×2 (08:38→20:21)
[2016-12-03] MEDS: Pantoprazole 40 MG VIAL IVP SCH (08:39)
[2016-12-03] MEDS ORDERED: *HR* OxyCODONE/APAP 5/325 TABLET PO PRN (11:35)
[2016-12-03] MEDS ORDERED: *HR* HYDROmorphone 2 MG/ML SYRINGE IVP PRN (12:00)
[2016-12-03] MEDS: Sennosides/Docusate Sodium TABLET PO SCH ×2 (14:19→20:21)
--- NOTE | 2016-12-03 16:37 | Anesthesia Evaluation PreOp ---
Date of Encounter: 12/03/16 Time of Encounter: 16:35 - Past History Planned Operation: ercp/epigastric pain/n/v/ Cardiac History: HTN, Hyperlipidemia, Arrhythmia (h/o AF with ablation 2010) Pulmonary History: Denies Any Significant HX FLOOR CLEANER History: Other (anxiety/depression) Other Medical History: Diabetes Type II (91 at 1643) Anesthesia History: No Prior Anesthetic Complications, Past Anesthesia (heart ablation, ercp, MAYE, cholecyst, cleft lip, cscope) Alcohol Use: none Drug use: none Medications and Allergies Atorvastatin [Lipitor] 40 mg PO HS 11/30/16 [History] Diltiazem CD (24hr) [Cardizem CD] 120 mg PO BID 11/30/16 [History] Dronedarone [Multaq] 400 mg PO BIDWM 11/30/16 [History] FLUoxetine HCl [PROzac] 20 mg PO DAILY 11/30/16 [History] Ferrous Sulfate [Iron] 325 mg PO BID 11/30/16 [History] Losartan Potassium [Cozaar] 50 mg PO HS 11/30/16 [History] Melatonin/Pyridoxine HCl (B6) [Melatonin 1 mg Tablet] 1 tab PO HS PRN 11/30/16 [ History] Rivaroxaban [Xarelto] 20 mg PO DAILY 11/30/16 [History] Cyanocobalamin (Vitamin B-12) [Vitamin B12] 1,000 mcg PO DAILY 12/02/16 [History ] Lipase/Protease/Amylase [Creon Dr 36,000 Units Capsule] 1 cap PO TID 12/02/16 [ History] Metformin [Glucophage] 500 mg PO TID 12/02/16 [History] Allergies lisinopril Allergy (Verified 11/30/16 12:06) Cough acetaminophen [From Vicodin] Adverse Reaction (Verified 11/30/16 12:06) Nausea hydrocodone [From Vicodin] Adverse Reaction (Verified 11/30/16 12:06) Nausea - Meds/Allergy Pre-op Review Medications Reviewed: Yes (xarelto off x 29hrs) Allergies Reviewed: Yes Beta Blockers on Current Med List: No Anesthesia Results - Labs 12/03/16 05:16 12/03/16 05:16 Laboratory Tests 12/03/16 05:16 Direct Bilirubin 0.6 H AST 416 H ALT 415 H Alkaline Phosphatase 107 Serum Total Protein 5.9 L Albumin 3.1 L - Imaging EKG: report reviewed (12/14 sbpvc) Anesthesia Exam Vital Signs/O2 Sat/Glucose, Most Current Temp Pulse Resp BP Pulse Ox 12/03/16 15:28 98.2 F 90 18 139/72 99 Blood glucose: 83 (1051 repeat ordered) Height: 1.59 Weight: 68 NPO (# of Hours): >8 - HEENT Pupil (Motor): Pupils equal, EOMI Mallampati: II Teeth: Normal Oral Opening: Greater than 3 - FLOOR CLEANER LOC: Oriented FLOOR CLEANER Motor: Normal RUE, Normal LUE, Normal RLE, Normal LLE, Normal Face FLOOR CLEANER Sensory: Normal: RUE, LUE, RLE, LLE, Face - Cardiac Rhythm: Regular Murmur: None - Pulmonary Breath Sounds: bilateral Clear Respiratory Effort: Symmetrical Anesthesia Assess/Plan ASA Score: 3 Modified Yolande Scale for Level of Consciousness: Cooperative, oriented, and tranquil Anesthetic Plan: General Monitoring Plan: Standard Monitors Recovery Plan: PACU
[2016-12-03] MEDS ORDERED: *HR* FentaNYL (PF) 100 MCG/2 ML VIAL ONE (18:26)
--- NOTE | 2016-12-03 18:56 | Internal Med Progress Note ---
Date of Encounter: 12/03/16 Time of Encounter: 11:53 - Assessment and plan (1) S/P ERCP Current Visit: Yes Status: Acute Assessment and plan: Appreciate GI input. Check lipase in the morning. Check LFTs. (2) Abdominal pain Current Visit: Yes Status: Acute Assessment and plan: IV Dilaudid for pain. Qualifiers: Abdominal location: epigastric Qualified Code(s): R10.13 - Epigastric pain (3) Transaminitis Current Visit: Yes Status: Acute Assessment and plan: Discussed with GI. Plan is for ERCP with CBD stent placement today. She had a pancreatic duct stent placed recently at [facility]. (4) Type 2 diabetes mellitus Current Visit: Yes Status: Acute Assessment and plan: Continue with sliding scale. 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 Qualifiers: Atrial fibrillation type: chronic Qualified Code(s): I48.2 - Chronic atrial fibrillation (6) DVT prophylaxis Current Visit: Yes Status: Acute Assessment and plan: She is fully anticoagulated. She is at high risk for morbidity without any complications due to IV opiates for pain. - Subjective Interval history: patient reports sharp epigastric abdominal pain without significant nausea, no vomiting. Pain was improved with IV opiates. - Constitutional Vitals: Temp Pulse Resp BP Pulse Ox 98.2 F 79 18 149/74 94 12/03/16 15:28 12/03/16 18:11 12/03/16 18:11 12/03/16 18:11 12/03/16 18:11 General appearance: Present: A&O X 3, pleasant, no acute distress - Respiratory Respiratory exam: Present: CTAB. Absent: accessory muscle use, rales, rhonchi, wheezes - Cardiovascular Cardiovascular exam: Present: RRR, +S1, +S2. Absent: diastolic murmur, gallop, rubs, systolic murmur - GI/Abdominal GI/Abdominal exam: Present: normal bowel sounds, soft, tenderness, no peritoneal signs. Absent: distended - Neurological Exam Neurological exam: Present: CN II-XII intact, oriented X3, no focal deficits. Absent: pronater drift, facial droop, speech deficit Internal Medicine: Result - Labs CBC & Chem 7: 12/03/16 05:16 12/03/16 05:16 Labs: Short CBC 12/03/16 Range/Units 05:16 WBC 5.9 D (4.3-11.1) K/mcL Hgb 9.6 L D (11.5-15.4) g/dL Hct 30.3 L (35.3-44.9) % Plt Count 154 (140-400) K/mcL Neutrophils # 3.5 (1.6-8.9) K/mcL BMP 12/03/16 05:16 Sodium 144 Potassium 3.9 Chloride 113 H Carbon Dioxide 22 BUN 20 Creatinine 0.80 Glucose 89 Calcium 9.0 Liver Function 12/03/16 Range/Units 05:16 Total Bilirubin 1.2 (0.2-1.2) mg/dL Direct Bilirubin 0.6 H (0.0-0.5) mg/dL AST 416 H (5-34) Units/L ALT 415 H (0-55) Units/L Alkaline Phosphatase 107 (38-126) Units/L Albumin 3.1 L (3.5-5.0) g/dL - VTE Documentation of Mechanical Device: Graduated compression elastic hosiery Consult Discharge Plan - Plan Referrals: Bouchra Maxwell CNP [Partnered Physician] - 12/11/16 10:40 am
--- NOTE | 2016-12-03 19:46 | Anesthesia Evaluation Post Op ---
Date of Encounter: 12/03/16 Time of Encounter: 19:45 - Vital Signs Vital Signs: Last Vital Signs Temp 97.8 F 12/03/16 19:35 Pulse 85 12/03/16 19:35 Resp 16 12/03/16 19:35 BP 144/73 12/03/16 19:35 Pulse Ox 94 12/03/16 19:35 - Lungs Lungs: Clear Ascult./Percussion - Airway Airway: Non-obstructed - Cardiovascular Regular Rate - Mental Status Mental Status: Alert & Oriented, Answers Appropriately - Pain Pain Scale: 3 - Nausea Vomiting Nausea Vomiting: Not Present - Hydration Hydration: NPO - Discharge PostOp Status: Transfer Patient to floor
[2016-12-03] MEDS: *HR* Rivaroxaban 15 MG TABLET PO SCH (20:21)
[2016-12-04 04:47] LABS: Basophils % 0.3 %; Hematocrit 30.5 % (35.3-44.9); Hemoglobin 9.6 g/dL (11.5-15.4); Immature Granulocytes % 0.5 % (0-4); Lymphocytes # 0.4 K/mcL (0.6-4.6); Lymphocytes % 6.8 %; Mean Corpuscular HGB Conc 31.5 g/dL (31.6-35.5); Mean Corpuscular Hemoglobin 25.7 pg (28.0-33.3); Mean Corpuscular Volume 81.6 fL (83.0-100.0); Mean Platelet Volume 9.9 fL (9.4-12.4); Monocytes # 0.1 K/mcL (0.0-1.3); Monocytes % 0.9 %; Neutrophils # 5.9 K/mcL (1.6-8.9); Platelet Count 165 K/mcL (140-400); Red Blood Count 3.74 M/mcL (3.82-4.97); Red Cell Distribution Width 19.9 % (11.5-14.5); Segmented Neutrophils % 91.5 %
[2016-12-04 05:04] LABS: Alanine Aminotransferase 279 Units/L (0-55); Albumin 3.3 g/dL (3.5-5.0); Albumin/Globulin Ratio 1.1 (1.1-2.2); Alkaline Phosphatase 100 Units/L (38-126); Aspartate Amino Transferase 187 Units/L (5-34); BUN/Creatinine Ratio 23 (6-26); Bilirubin,Direct 0.3 mg/dL (0.0-0.5); Bilirubin,Indirect 0.4 mg/dL (0.0-1.2); Bilirubin,Total 0.7 mg/dL (0.2-1.2); Blood Urea Nitrogen 19 mg/dL (7-20); Calcium 9.2 mg/dL (8.6-10.8); Carbon Dioxide 17 mEq/L (19-29); Chloride 112 mEq/L (98-109); Globulin 2.9 g/dL (2.4-3.5); Glucose 159 mg/dL (70-99); Lipase 20 Units/L (8-78); Osmolality,Calculated 300 (280-300); Potassium 3.4 mEq/L (3.5-4.5); Sodium 142 mEq/L (136-145); Total Protein 6.2 g/dL (6.0-8.3); eGFR For African Americans > 60 (> 60); eGFR For Non-African Americans > 60 (> 60)
[2016-12-04 05:15] LABS: Anisocytosis 1+ (Not Present); Platelet Estimate Normal (Normal)
[2016-12-04] MEDS: Insulin LISPRO 300 UNITS/3 ML VIAL SQ SCH ×2 (07:53→12:25)
[2016-12-04] MEDS: Diltiazem CD (24hr) 120 MG CAPSULE PO SCH (08:25)
[2016-12-04] MEDS: Sennosides/Docusate Sodium TABLET PO SCH (08:25)
[2016-12-04] MEDS: 0.9 % Sodium Chloride 1,000 ML IVC SCH (08:25)
[2016-12-04] MEDS: FLUoxetine 20 MG CAPSULE PO SCH (08:25)
[2016-12-04] MEDS ORDERED: Pantoprazole 40 MG VIAL IVP SCH (09:00)
[2016-12-04 15:07] VITALS: BP 119/64
--- NOTE | 2016-12-04 16:08 | Discharge Summary ---
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 Qualified Code(s): E11.9 - Type 2 diabetes mellitus without complications (5) Atrial fibrillation Priority: Secondary Status: Chronic Qualifiers: Atrial fibrillation type: chronic Qualified Code(s): I48.2 - Chronic atrial fibrillation (6) DVT prophylaxis Priority: Secondary Status: Acute - Discharge Medications Home Medications: Atorvastatin [Lipitor] 40 mg PO HS 11/30/16 [History] Diltiazem CD (24hr) [Cardizem CD] 120 mg PO BID 11/30/16 [History] Dronedarone [Multaq] 400 mg PO BIDWM 11/30/16 [History] FLUoxetine HCl [Prozac] 20 mg PO DAILY 11/30/16 [History] Ferrous Sulfate [Iron] 325 mg PO BID 11/30/16 [History] Losartan Potassium [Cozaar] 50 mg PO HS 11/30/16 [History] Melatonin/Pyridoxine HCl (B6) [Melatonin 1 mg Tablet] 1 tab PO HS PRN 11/30/16 [ History] Rivaroxaban [Xarelto] 20 mg PO DAILY 11/30/16 [History] Cyanocobalamin (Vitamin B-12) [Vitamin B12] 1,000 mcg PO DAILY 12/02/16 [History ] Lipase/Protease/Amylase [Creon Dr 36,000 Units Capsule] 1 cap PO TID 12/02/16 [ History] Metformin [Glucophage] 500 mg PO TID 12/02/16 [History] Rivaroxaban [Xarelto] 15 mg PO 1700 tablet 12/04/16 [Rx] Allergies/Adverse Reactions: Allergies lisinopril Allergy (Verified 11/30/16 12:06) Cough acetaminophen [From Vicodin] Adverse Reaction (Verified 11/30/16 12:06) Nausea hydrocodone [From Vicodin] Adverse Reaction (Verified 11/30/16 12:06) Nausea Date of admission: 12/04/16 03:11 Primary care physician: Marco Puga MD - Patient Status Disposition: Home, Self-Care Condition: Fair Functional capacity at discharge: independent ambulation Overall status at discharge: patient is back to baseline - Discharge Instructions Follow Up With: Bouchra Maxwell CNP [Partnered Physician] - 12/11/16 10:40 am Patricia Schroeder MD [Partnered Physician] - - Diet and Activity Activity: increase activity as tolerated Diet: diabetic diet Hospital course: Hospital presentation: Ms. Knight is a 76 year old female with hypertension, hyperlipidemia, diet-controlled type 2 diabetes, atrial fibrillation status post ablation, and dilation of pancreatic ducts recently had an ERCP presented to the emergency department early this morning with complaints of severe abdominal pain located in the epigastric area and radiates to the right and left upper quadrant in her back. She reports she tried Tylenol but that did not relieve her pain. She also had nausea and vomiting. Patient reports she has been having a poor appetite and diarrhea as well as intermittent abdominal pain since early September, which is why she has been seen by Dr. Hathaway and been evaluated with an EUS, and CT. It was found that she had dilated pancreatic duct for which she underwent an ERCP with pancreatic duct stent placement 2 days ago on the . She continues to have a poor appetite. She reports she has not had a bowel movement since her ERCP on the fourth. She is passing flatus, however. Evaluation in the emergency department included a CT of the abdomen and pelvis which showed pancreatic duct stent in place with decompression of the pancreatic duct near the ampulla. Labs revealed mildly elevated white blood cell count of 12.2. Mildly elevated BUN of 23. Elevated LFTs with AST of 181, ALT of 103. Hospital course: The patient was admitted to the medical service. She was initially treated with IV fluids, nothing by mouth. LFTs were monitored. Gastroenterology was consulted. Her LFTs trended up and therefore she had an ERCP done yesterday which found a blood clot nearly opening of the common bile duct into the ampulla. This was washed off in the CBD was explored. No stones were found. A CBD stent was placed. She tolerated the procedure well and she was returned to the medical holliday. Repeat LFTs today are trending down, direct bilirubin is 0.3. AST and ALT are 187 and 279 respectively. She denies abdominal pain nausea vomiting. She reports diarrhea which she has been having on and off several months. She tolerated a regular diet and will be discharged home. She was instructed to follow-up with gastroenterology in 1 week. - Time Spent with Patient Total time spent providing and/or coordinating discharge services: Less than 30 minutes (I have spent 35 minutes coronarydischarge.) - Constitutional Vitals: Temp Pulse Resp BP Pulse Ox 97.8 F 71 16 119/64 100 12/04/16 15:06 12/04/16 15:06 12/04/16 15:06 12/04/16 15:06 12/04/16 15:06 General appearance: Present: A&O X 3, pleasant, no acute distress - Respiratory Respiratory exam: Present: CTAB. Absent: accessory muscle use, rales, rhonchi, wheezes - Cardiovascular Cardiovascular exam: Present: RRR, +S1, +S2. Absent: diastolic murmur, gallop, rubs, systolic murmur - GI/Abdominal GI/Abdominal exam: Present: normal bowel sounds, soft, no peritoneal signs. Absent: distended, tenderness - VTE Documentation of Mechanical Device: Graduated compression elastic hosiery
[2016-12-04] MEDS ORDERED: *HR* Propofol 200 MG/20 ML VIAL IVP ONE (17:17)
[2016-12-04] MEDS ORDERED: *HR* Succinylcholine 200 MG/10 ML VIAL IVP ONE (17:17)
[2016-12-04] MEDS ORDERED: Lidocaine -MPF 4% 5 ML AMPUL TP ONE (17:17)
[2016-12-04] MEDS ORDERED: Lidocaine -MPF 2% 5 ML VIAL INFILT ONE (17:17)
[2016-12-04] MEDS ORDERED: Ondansetron 4 MG/2 ML VIAL IVP ONE (17:17)
[2016-12-04] MEDS ORDERED: *HR* Phenylephrine 10 MG/ML VIAL IVC ONE (17:17)
[2016-12-04] MEDS ORDERED: Insulin LISPRO 300 UNITS/3 ML VIAL SQ SCH (21:00)
== END 2016-12-04 17:18 | disposition home or self-care (01) | DRG 446 ==
LOC: EMEROO 00:42 → 3ANU 00:42
PROVIDERS: ADMIT Internal Medicine; ATTEND Internal Medicine

== ENCOUNTER 2021-12-19 14:44 | Inpatient (IN) ==
[2021-12-19] MEDS ORDERED: Piperacillin/Tazobactam 3.375 GM in 0.9 % Sodium Chloride Mini Bag 100 ML IVPB ONE (15:10)
[2021-12-19 15:37] LABS: Hematocrit 40.9 % (35.3-44.9); Hemoglobin 13.2 g/dL (11.5-15.4); Mean Corpuscular HGB Conc 32.3 g/dL (31.6-35.5); Mean Corpuscular Hemoglobin 30.6 pg (28.0-33.3); Mean Corpuscular Volume 94.9 fL (83.0-100.0); Mean Platelet Volume 9.4 fL (9.4-12.4); Platelet Count 174 K/mcL (140-400); Red Blood Count 4.31 M/mcL (3.82-4.97); Red Cell Distribution Width 12.9 % (11.5-14.5); White Blood Count 11.1 K/mcL (4.3-11.1)
[2021-12-19 15:47] LABS: BUN/Creatinine Ratio 19 (6-26); Blood Urea Nitrogen 18 mg/dL (8-23); Calcium 10.1 mg/dL (8.6-10.3); Carbon Dioxide 25 mEq/L (23-29); Chloride 103 mEq/L (98-107); Glucose 97 mg/dL (70-105); Osmolality,Calculated 282 (280-300); Potassium 3.4 mEq/L (3.5-5.1); Sodium 135 mEq/L (136-145); eGFR For African Americans > 60 (> 60); eGFR For Non-African Americans 58 (> 60)
[2021-12-19] MEDS ORDERED: Naloxone 0.4 MG/ML INJ IVP PRN (16:01)
[2021-12-19] MEDS ORDERED: Ondansetron 4 MG/2 ML VIAL IVP PRN (16:01)
[2021-12-19] MEDS: Acetaminophen 325 MG TABLET PO PRN (17:56)
[2021-12-19] MEDS: 0.9 % Sodium Chloride 1,000 ML IVC SCH (17:56)
[2021-12-19] MEDS: PROPAFENONE HCL 325 MG PO SCH (21:38)
[2021-12-20] MEDS: Piperacillin/Tazobactam 3.375 GM in 0.9 % Sodium Chloride Mini Bag 100 ML IVPB SCH ×4 (00:45→23:19)
[2021-12-20] MEDS: Acetaminophen 325 MG TABLET PO PRN ×2 (00:59→10:21)
[2021-12-20] MEDS ORDERED: *HR* Enoxaparin 40 MG/0.4 ML SYRINGE SQ SCH (06:00)
[2021-12-20] MEDS: 0.9 % Sodium Chloride 1,000 ML IVC SCH (06:22)
[2021-12-20 06:43] LABS: Basophils # 0.1 K/mcL (0.0-0.2); Basophils % 0.5 %; Eosinophils # 0.3 K/mcL (0.0-0.6); Eosinophils % 3.2 %; Hematocrit 36.7 % (35.3-44.9); Hemoglobin 12.3 g/dL (11.5-15.4); Immature Granulocytes % 0.2 % (0-4); Lymphocytes # 0.9 K/mcL (0.6-4.6); Lymphocytes % 9.3 %; Mean Corpuscular HGB Conc 33.5 g/dL (31.6-35.5); Mean Corpuscular Hemoglobin 31.4 pg (28.0-33.3); Mean Corpuscular Volume 93.6 fL (83.0-100.0); Mean Platelet Volume 9.7 fL (9.4-12.4); Monocytes # 0.8 K/mcL (0.0-1.3); Monocytes % 8.5 %; Neutrophils # 7.3 K/mcL (1.6-8.9); Platelet Count 170 K/mcL (140-400); Red Blood Count 3.92 M/mcL (3.82-4.97); Red Cell Distribution Width 12.7 % (11.5-14.5); Segmented Neutrophils % 78.3 %; White Blood Count 9.4 K/mcL (4.3-11.1)
[2021-12-20 07:06] LABS: BUN/Creatinine Ratio 16 (6-26); Blood Urea Nitrogen 15 mg/dL (8-23); Calcium 9.4 mg/dL (8.6-10.3); Carbon Dioxide 23 mEq/L (23-29); Chloride 110 mEq/L (98-107); Glucose 95 mg/dL (70-105); Osmolality,Calculated 289 (280-300); Potassium 3.5 mEq/L (3.5-5.1); Sodium 139 mEq/L (136-145); eGFR For African Americans > 60 (> 60); eGFR For Non-African Americans 56 (> 60)
[2021-12-20] MEDS: PROPAFENONE HCL 325 MG PO SCH ×2 (10:06→16:47)
[2021-12-20] MEDS: DilTIAZem CD (24hr) 120 MG CAP.ER.24H PO SCH (10:07)
[2021-12-20] MEDS: *HR* Rivaroxaban 10 MG TABLET PO SCH (13:14)
[2021-12-21 07:47] VITALS: BP 133/74; PULSE 68; TEMP 98.8; O2SAT 96
[2021-12-21] MEDS: Piperacillin/Tazobactam 3.375 GM in 0.9 % Sodium Chloride Mini Bag 100 ML IVPB SCH (09:12)
[2021-12-21] MEDS: *HR* Rivaroxaban 10 MG TABLET PO SCH (09:13)
[2021-12-21] MEDS: DilTIAZem CD (24hr) 120 MG CAP.ER.24H PO SCH (09:13)
[2021-12-21] MEDS: PROPAFENONE HCL 325 MG PO SCH (09:14)
[2021-12-21 09:47] LABS: Hematocrit 38.6 % (35.3-44.9); Hemoglobin 12.8 g/dL (11.5-15.4); Mean Corpuscular HGB Conc 33.2 g/dL (31.6-35.5); Mean Corpuscular Hemoglobin 30.9 pg (28.0-33.3); Mean Corpuscular Volume 93.2 fL (83.0-100.0); Mean Platelet Volume 11.5 fL (9.4-12.4); Platelet Count 198 K/mcL (140-400); Red Blood Count 4.14 M/mcL (3.82-4.97); Red Cell Distribution Width 12.7 % (11.5-14.5); White Blood Count 9.6 K/mcL (4.3-11.1)
[2021-12-21] MEDS ORDERED: Cholestyramine 4 GM POWD.PACK PO SCH (10:00)
[2021-12-21] MEDS ORDERED: Lactobacillus 1 EACH CAP.SPRINK PO SCH (21:00)
== END 2021-12-21 10:17 | disposition home or self-care (01) | DRG 379 ==
LOC: EMEROOARM 14:44 → SUATTDRO 18:47 → 3ANU 18:47
PROVIDERS: ADMIT Internal Medicine; ATTEND Family Medicine